=== PATIENT | male | born 1960 | race Caucasian/White ===

== ENCOUNTER → 2019-09-21 | Outpatient (CLI) | payer OTHER ==
[~2019-09-21] MED LIST: ALPRAZOLAM 0.0.25 M1 PO; ETODOLAC 400 M400 MG PO; MULTIVITAMINS1 EAC7 PO; carbidopa PO
== END ==
LOC: M.PC 09:00
DX: M50.10 Cervical disc disorder with radiculopathy, unspecified cervical region (principal); M48.02 Spinal stenosis, cervical region; G20 Parkinson's disease

== ENCOUNTER → 2020-11-14 | Outpatient (CLI) | payer OTHER | LOC: M.PC 09:02 | PROVIDERS: ATTEND Physical Medicine & Rehabilitation | DX: M47.22 Other spondylosis with radiculopathy, cervical region (principal); M50.321 Other cervical disc degeneration at C4-C5 level; M48.061 Spinal stenosis, lumbar region without neurogenic claudication; R20.2 Paresthesia of skin ==

== ENCOUNTER → 2020-12-31 | Outpatient (CLI) | payer OTHER, MEDICARE ==
[~2020-12-31] MED LIST changes: +FISH OIL 1,0001 EAC9 PO; +HYDROCODON-ACE1 EAC7 PO; +VITAMIN B; +[UNRECOGNIZED DRUG - OTHER]
== END | disposition home or self-care (01) ==
LOC: M.PC 09:13
PROVIDERS: ATTEND Physical Medicine & Rehabilitation
DX: M50.121 Cervical disc disorder at C4-C5 level with radiculopathy (principal); M47.22 Other spondylosis with radiculopathy, cervical region; M48.02 Spinal stenosis, cervical region; F17.210 Nicotine dependence, cigarettes, uncomplicated; F10.10 Alcohol abuse, uncomplicated; G20 Parkinson's disease; Z98.890 Other specified postprocedural states; Z79.899 Other long term (current) drug therapy; Z88.5 Allergy status to narcotic agent; Z91.013 Allergy to seafood; Z88.6 Allergy status to analgesic agent

== ENCOUNTER → 2021-01-14 | Outpatient (CLI) | payer OTHER, MEDICARE | LOC: M.PC 09:08 | PROVIDERS: ATTEND Physical Medicine & Rehabilitation | DX: M50.122 Cervical disc disorder at C5-C6 level with radiculopathy (principal); M47.22 Other spondylosis with radiculopathy, cervical region; M48.02 Spinal stenosis, cervical region; G56.03 Carpal tunnel syndrome, bilateral upper limbs; G20 Parkinson's disease; Z79.899 Other long term (current) drug therapy; Z79.891 Long term (current) use of opiate analgesic ==